=== PATIENT | male | born 1995 | race Native Hawaiian/Other Pacific Islander ===

== ENCOUNTER 2022-07-31 11:41 | Inpatient (IN) | payer OTHER ==
[~2022-07-31] VITALS: Ht 185.4 cm; Wt 116.4 kg
[2022-07-31 12:45] LABS: HEMATOCRIT 44.8 % (42.0-52.0); HEMOGLOBIN 14.9 g/dl (13.5-17.5); MEAN CORPUSCULAR HEMOGLOBIN 30.2 pg (27.0-33.0); MEAN CORPUSCULAR HGB CONC 33.3 g/dl (32.0-36.5); MEAN CORPUSCULAR VOLUME 90.7 fl (80.0-96.0); PLATELET COUNT, AUTOMATED 247 10^3/uL (150-450); RED BLOOD COUNT 4.94 10^6/uL (4.30-6.10); WHITE BLOOD COUNT 8.1 10^3/uL (4.0-10.0)
[2022-07-31 13:14] LABS: ETHYL ALCOHOL (ETHANOL) 0.003 % (0.000-0.010)
[2022-07-31 13:15] LABS: ACETAMINOPHEN LEVEL < 2.0 UG/ML (10.0-20.0); BILIRUBIN,DIRECT 0.3 MG/DL (<0.4)
[2022-07-31 13:16] LABS: ALKALINE PHOSPHATASE 76 U/L (46-116); ALT/SGPT 33 U/L (7.0-40); AST/SGOT 32 U/L (<34); BILIRUBIN,TOTAL 0.8 MG/DL (0.3-1.2); BLOOD UREA NITROGEN 12 MG/DL (9-23); CALCIUM LEVEL 8.9 MG/DL (8.5-10.1); CARBON DIOXIDE LEVEL 29 MMOL/L (20-31); CHLORIDE LEVEL 101 MMOL/L (98-107); CREATININE FOR GFR 1.06 MG/DL (0.70-1.30); GLOMERULAR FILTRATION RATE > 60.0 (>60); GLUCOSE, FASTING 90 MG/DL (60-100); POTASSIUM SERUM 4.3 MMOL/L (3.5-5.1); SALICYLATE LEVEL < 3.0 MG/DL (<30); SODIUM LEVEL 137 MMOL/L (136-145); TOTAL PROTEIN 7.1 G/DL (5.7-8.2)
[2022-07-31 13:18] LABS: THYROID STIMULATING HORMONE 3.229 uIU/ML (0.55-4.78)
[2022-07-31 13:25] LABS: BARBITURATES URINE NEGATIVE (NEGATIVE); COCAINE METABOLITE URINE NEGATIVE (NEGATIVE)
[2022-07-31 13:26] LABS: AMPHETAMINES LEVEL URINE NEGATIVE (NEGATIVE); BENZODIAZEPINES URINE NEGATIVE (NEGATIVE); CANNABINOIDS URINE NEGATIVE (NEGATIVE); METHADONE URINE NEGATIVE (NEGATIVE); OPIATES URINE NEGATIVE (NEGATIVE); PHENCYCLIDINE URINE NEGATIVE (NEGATIVE)
[2022-07-31 13:28] LABS: RSV AMPLIFICATION NEGATIVE (NEGATIVE)
[2022-07-31] MEDS ORDERED: HOME MED LIST COMPLETE! XX SCH (14:10)
[2022-07-31] MEDS ORDERED: LORazepam 2 MG TAB PO PRN (14:35)
[2022-07-31] MEDS: MULTIVITAMINS/MINERALS THERAP 1 TAB PO SCH (14:59)
[2022-07-31] MEDS: FOLIC ACID 1MG TAB PO SCH (14:59)
[2022-07-31] MEDS: THIAMINE 100 MG TAB PO SCH ×2 (15:00→21:00)
[2022-07-31] MEDS ORDERED: NICOTINE POLACRILEX 2 MG GUM PO PRN (17:25)
[2022-08-01] MEDS: MULTIVITAMINS/MINERALS THERAP 1 TAB PO SCH (09:07)
[2022-08-01] MEDS: FOLIC ACID 1MG TAB PO SCH (09:07)
[2022-08-01] MEDS: THIAMINE 100 MG TAB PO SCH (09:07)
[2022-08-01] MEDS ORDERED: MAALOX 30 ML SUSP *UDC PO PRN (13:05)
[2022-08-01] MEDS ORDERED: MOM 30ML SUSPENSION UDC PO PRN (13:05)
[2022-08-01] MEDS: NICOTINE 21MG/24HR 1 EA TRANSDERMAL TD SCH (13:35)
[2022-08-01 16:00] VITALS: BP 132/76
[2022-08-01] MEDS: IBUPROFEN 400MG TAB PO PRN (17:15)
[2022-08-01] MEDS: traZODone 50 MG TAB PO PRN (20:18)
[2022-08-02 06:00] VITALS: BP 143/81
[2022-08-02] MEDS: IBUPROFEN 400MG TAB PO PRN ×2 (06:35→14:58)
[2022-08-02] MEDS: NICOTINE 21MG/24HR 1 EA TRANSDERMAL TD SCH (09:54)
[2022-08-02] MEDS: PILL CUTTER 1 EACH XX PRN (09:55)
[2022-08-02] MEDS: buPROPion 100 MG TAB PO SCH (09:57)
[2022-08-02 16:32] VITALS: BP 142/92
[2022-08-02] MEDS: diphenhydrAMINE 25MG CAP PO PRN (18:08)
[2022-08-02] MEDS: PRAZOSIN 1 MG CAP PO SCH (20:54)
[2022-08-02] MEDS: traZODone 50 MG TAB PO PRN (20:54)
[2022-08-03 06:29] VITALS: BP 125/70
[2022-08-03] MEDS: OLANZapine 5 MG TAB PO PRN ×2 (08:38→15:44)
[2022-08-03] MEDS: PILL CUTTER 1 EACH XX PRN (08:38)
[2022-08-03] MEDS: buPROPion 100 MG TAB PO SCH (08:38)
[2022-08-03] MEDS: NICOTINE 21MG/24HR 1 EA TRANSDERMAL TD SCH (08:39)
[2022-08-03 16:42] VITALS: BP 129/60
[2022-08-03] MEDS: IBUPROFEN 400MG TAB PO PRN (18:54)
[2022-08-03] MEDS: PRAZOSIN 1 MG CAP PO SCH (21:41)
[2022-08-04 06:50] VITALS: BP 132/76
[2022-08-04] MEDS: NICOTINE 21MG/24HR 1 EA TRANSDERMAL TD SCH (08:26)
[2022-08-04] MEDS: OLANZapine 5 MG TAB PO PRN ×3 (08:27→20:32)
[2022-08-04] MEDS: PILL CUTTER 1 EACH XX PRN (08:27)
[2022-08-04] MEDS: buPROPion 100 MG TAB PO SCH (08:27)
[2022-08-04] MEDS: IBUPROFEN 400MG TAB PO PRN (08:29)
[2022-08-04 16:32] VITALS: BP 140/78
[2022-08-04 20:32] VITALS: BP 140/78
[2022-08-04] MEDS: traZODone 50 MG TAB PO PRN (20:32)
[2022-08-04] MEDS: PRAZOSIN 1 MG CAP PO SCH (20:32)
[2022-08-04] MEDS: diphenhydrAMINE 25MG CAP PO PRN (21:46)
[2022-08-05 06:00] VITALS: BP 118/71
[2022-08-05] MEDS: NICOTINE 21MG/24HR 1 EA TRANSDERMAL TD SCH (08:37)
[2022-08-05] MEDS: buPROPion 100 MG TAB PO SCH (08:37)
[2022-08-05] MEDS: PILL CUTTER 1 EACH XX PRN (08:37)
[2022-08-05] MEDS: OLANZapine 5 MG TAB PO PRN (08:38)
[2022-08-05] MEDS: IBUPROFEN 400MG TAB PO PRN (10:30)
[2022-08-05] MEDS ORDERED: MINI1CAP PO ×2 (11:20→12:50)
[2022-08-05] MEDS ORDERED: TRAZ-252 PO ×2 (11:20→12:50)
[2022-08-05] MEDS ORDERED: BUPR-332 PO (11:20)
[2022-08-05] MEDS ORDERED: NICO21PAT TD ×2 (11:20→12:50)
[2022-08-05] MEDS ORDERED: BUPR150T12 PO (12:50)
== END 2022-08-05 13:42 | disposition home or self-care (01) | DRG 885 ==
LOC: M ED 11:41 → M ED INP 08-01 13:04 → M PSY 08-01 16:09
PROVIDERS: ADMIT Psychiatry & Neurology Psychiatry; ATTEND Psychiatry & Neurology Psychiatry
DX: F32.1 Major depressive disorder, single episode, moderate (principal); R45.851 Suicidal ideations; F10.10 Alcohol abuse, uncomplicated; F41.9 Anxiety disorder, unspecified; F43.0 Acute stress reaction; F17.200 Nicotine dependence, unspecified, uncomplicated; Z59.89 Other problems related to housing and economic circumstances